=== PATIENT | male | born 1950 | race Caucasian/White ===

== ENCOUNTER 2016-11-07 12:51 | Day surgery (SDC) | payer OTHER | END 2016-11-07 14:42 | disposition short-term general hospital (02) | LOC: SURGOP 12:51 | PROC: 3E0T33Z Introduction of Anti-inflammatory into Peripheral Nerves and Plexi, Percutaneous Approach (ICD-10-PCS; principal; 2016-11-07) | PROC: 3E0T3BZ Introduction of Anesthetic Agent into Peripheral Nerves and Plexi, Percutaneous Approach (ICD-10-PCS; 2016-11-07) | DX: G89.28 Other chronic postprocedural pain (principal); R10.84 Generalized abdominal pain; I10 Essential (primary) hypertension; Z88.8 Allergy status to other drugs, medicaments and biological substances; F17.200 Nicotine dependence, unspecified, uncomplicated | CPT/HCPCS: J2795; J3301 ==

== ENCOUNTER → 2016-12-12 | Outpatient (CLI) | payer OTHER | END | disposition short-term general hospital (02) | LOC: CLPAIN 07:42 | DX: G89.28 Other chronic postprocedural pain (principal); R10.84 Generalized abdominal pain; M47.27 Other spondylosis with radiculopathy, lumbosacral region; Z98.890 Other specified postprocedural states ==

== ENCOUNTER → 2017-01-23 | Outpatient (CLI) | payer OTHER | END | disposition short-term general hospital (02) | LOC: CLPAIN 07:40 | DX: M47.27 Other spondylosis with radiculopathy, lumbosacral region (principal); G89.28 Other chronic postprocedural pain; R10.84 Generalized abdominal pain ==

== ENCOUNTER 2017-02-06 11:47 | Day surgery (SDC) | payer OTHER | END 2017-02-06 14:10 | disposition short-term general hospital (02) | LOC: SURGOP 11:47 | PROC: 3E0R33Z Introduction of Anti-inflammatory into Spinal Canal, Percutaneous Approach (ICD-10-PCS; principal; 2017-02-06) | PROC: 3E0R3BZ Introduction of Anesthetic Agent into Spinal Canal, Percutaneous Approach (ICD-10-PCS; 2017-02-06) | DX: G89.28 Other chronic postprocedural pain (principal); M47.816 Spondylosis without myelopathy or radiculopathy, lumbar region; Z79.891 Long term (current) use of opiate analgesic; Z79.899 Other long term (current) drug therapy | CPT/HCPCS: J3301 ==

== ENCOUNTER 2017-02-20 11:40 | Day surgery (SDC) | payer OTHER | END 2017-02-20 13:45 | disposition short-term general hospital (02) | LOC: SURGOP 11:40 → CLSURG 14:46 | PROC: 3E0R33Z Introduction of Anti-inflammatory into Spinal Canal, Percutaneous Approach (ICD-10-PCS; principal; 2017-02-20) | PROC: 3E0R3BZ Introduction of Anesthetic Agent into Spinal Canal, Percutaneous Approach (ICD-10-PCS; 2017-02-20) | DX: G89.29 Other chronic pain (principal); M47.27 Other spondylosis with radiculopathy, lumbosacral region; I10 Essential (primary) hypertension; F17.200 Nicotine dependence, unspecified, uncomplicated; Z88.8 Allergy status to other drugs, medicaments and biological substances; Z79.899 Other long term (current) drug therapy | CPT/HCPCS: J1040 ==